=== PATIENT | female | born 1980 | race Hispanic/Latino ===

== ENCOUNTER 2023-09-20 17:40 | Emergency (ER) | payer SELFPAY ==
[~2023-09-20] VITALS: Ht 160 cm; Wt 85.7 kg
[2023-09-20 18:35] VITALS: TEMP 98.4
[2023-09-20] MEDS: SODIUM CHLORIDE 0.9% 1000ML 1,000 ML IV ONE (18:52)
[2023-09-20] MEDS: ONDANSETRON HCL INJ 2MG/ML 2ML 2 MG/ML VIAL IV STA (18:53)
[2023-09-20] MEDS: KETOROLAC TROMETHAMINE 30 MG/ML VIAL IV STA (18:53)
[2023-09-20 19:00] LABS: BASOPHILS % 0.4 % (0.0-1.0); EOSINOPHILS # (AUTO) 0.2 (0.0-0.4); HEMATOCRIT 40.6 % (34.2-44.1); LYMPHOCYTES # (AUTO) 2.3 (1.0-3.2); LYMPHOCYTES % 25.9 % (18.0-39.1); MEAN CORPUSCULAR HEMOGLOBIN 28.2 pg (28-32); MEAN CORPUSCULAR VOLUME 88.1 fL (81-99); MONOCYTES # (AUTO) 0.6 (0.2-0.8); MONOCYTES % 7.2 % (4.4-11.3); NEUTROPHILS # (AUTO) 5.7 (2.1-6.9); NEUTROPHILS % 64.3 % (38.7-80.0); PLATELET COUNT 284 x10e3/uL (140-360); RED BLOOD COUNT 4.61 x10e6/uL (3.6-5.1); RED CELL DISTRIBUTION WIDTH 13.4 % (11.7-14.4); WHITE BLOOD COUNT 8.89 x10e3/uL (4.8-10.8)
[2023-09-20 19:12] LABS: ANION GAP 18.4 mmol/L (8-16); CALCIUM 9.1 mg/dL (8.4-10.2); CREATININE, SERUM 0.77 mg/dL (0.57-1.11)
[2023-09-20 19:17] LABS: POTASSIUM 3.4 mmol/L (3.5-5.1)
[2023-09-20] MEDS ORDERED: IOPAMIDOL 370 MG/ML 100 ML INFUS..BTL INJ ONE (19:39)
[2023-09-20 19:50] LABS: BILIRUBIN,URINE NEGATIVE (NEGATIVE); CLARITY,URINE CLOUDY (CLEAR); COLOR,URINE YELLOW (YELLOW); GLUCOSE, URINE NEGATIVE (NEGATIVE); KETONES,URINE NEGATIVE (NEGATIVE); LEUKOCYTE ESTERASE ,URINE NEGATIVE (NEGATIVE); NITRITE,URINE NEGATIVE (NEGATIVE); PH,URINE 7.5 (5 - 7); PROTEIN,URINE DIPSTICK NEGATIVE (NEGATIVE); URINE UROBILINOGEN 0.2 mg/dL (0.2 - 1)
[2023-09-20 19:57] LABS: AMORPHOUS SEDIMENT,URINE MANY (FEW); BACTERIA,URINE MANY /HPF; EPITHELIAL CELLS,URINE FEW /LPF; RBC,URINE 0-5 /HPF (0-5); WBC,URINE (MAN) 0-5 /HPF (0-5)
[2023-09-20 23:12] VITALS: PULSE 54; RESP 18; O2SAT 100
== END 2023-09-20 23:20 | disposition home or self-care (01) ==
LOC: ER 18:04
DX: R10.31 Right lower quadrant pain (principal); R11.0 Nausea; K76.0 Fatty (change of) liver, not elsewhere classified
CPT/HCPCS: 36415; 74177; 80048; 81001; 84702; 85025; 99283; J1885; J2405; J7030; Q9967

== ENCOUNTER 2024-12-20 11:55 | Emergency (ER) | payer OTHER ==
[~2024-12-20] VITALS: Ht 160 cm; Wt 85.7 kg
[2024-12-20] MEDS: KETOROLAC TROMETHAMINE 30 MG/ML VIAL IM STA (14:34)
[2024-12-20 15:40] VITALS: PULSE 52; RESP 17; TEMP 98; O2SAT 99
[2024-12-20] MEDS ORDERED: NAPROXEN375 MG PO (15:40)
== END 2024-12-20 15:58 | disposition home or self-care (01) ==
LOC: ER 12:28
DX: M54.50 Low back pain, unspecified (principal); M54.2 Cervicalgia; R51.9 Headache, unspecified; V43.52XA Car driver injured in collision with other type car in traffic accident, initial encounter; Y92.488 Other paved roadways as the place of occurrence of the external cause
CPT/HCPCS: 71046; 72040; 72100; 99284; J1885